=== PATIENT | female | born 1980 | race Caucasian/White ===

== ENCOUNTER 2018-04-07 21:38 | Emergency (ER) | payer OTHER, SELFPAY ==
[2018-04-07 21:46] VITALS: RESP 16
[2018-04-08] MEDS ORDERED: Iohexol 240 (50 ml) PO ONE (00:06)
[2018-04-08] MEDS ORDERED: Iohexol 240 (50 ml) ONE (00:35)
[2018-04-08 00:49] LABS: BASO % 0.5 % (0.0-2.0); EOS # 0.1 K/uL (0.0-0.7); EOS % 1.4 % (0.0-4.0); HEMOGLOBIN 9.4 g/dL (12.0-16.0); LYMPH # 2.4 K/uL (1.0-4.3); MEAN CELL VOLUME 67.4 fl (81.0-99.0); MEAN CORPUSCULAR HEMOGLOBIN 21.2 pg (27.0-31.0); MEAN CORPUSCULAR HGB CONC 31.4 g/dL (33.0-37.0); MEAN PLATELET VOLUME 8.3 fl (7.2-11.7); MONO # 0.6 K/uL (0.0-0.8); MONO % 7.8 % (0.0-10.0); NEUT # 4.5 K/uL (1.8-7.0); NEUT % 58.3 % (50.0-75.0); RBC 4.42 Mil/uL (3.80-5.20); RED CELL DISTRIBUTION WIDTH 18.4 % (11.5-14.5); WHITE BLOOD COUNT 7.7 K/uL (4.8-10.8)
[2018-04-08 00:58] LABS: ALB/GLOB RATIO 1.2 (1.0-2.1); ALBUMIN 4.2 g/dL (3.5-5.0); ALT/SGPT 28 U/L (9-52); AST/SGOT 20 U/L (14-36); BLOOD UREA NITROGEN 12 mg/dl (7-17); CALCIUM 9.1 mg/dL (8.4-10.2); GFR AFRICAN-AMERICAN > 60; GFR NON-AFRICAN AMERICAN > 60; LIPASE 116 U/L (23-300)
--- NOTE | 2018-04-08 01:57 | ED PDOC ---
HPI: Abdomen Time Seen by Provider: 04/07/18 23:15 Chief Complaint (Nursing): Abdominal Pain Chief Complaint (Provider): abdominal pain History Per: Patient History/Exam Limitations: no limitations Onset/Duration Of Symptoms: Days (x3), Intermittent Episodes (ongoing 6 months) Current Symptoms Are (Timing): Still Present Location Of Pain/Discomfort: Suprapubic Associated Symptoms: Nausea, Urinary Symptoms (dysuria) Additional Complaint(s): Trista Miranda is a 38 year old female, with no significant past medical history, who presents to the emergency department with suprapubic abdominal pain onset 3 days ago. Patient states that she has been experiencing the pain off and on for the past 6 months but has not seen a doctor for it. Patient reports a recent 12 lbs weight loss in the past few months which she attributes to getting a new job that requires her to be more physically active. She denies and diarrhea, fever or vaginal bleeding. PMD: none provided Past Medical History Reviewed: Historical Data, Nursing Documentation, Vital Signs Vital Signs: Last Vital Signs Temp 98.6 F 04/07/18 21:45 Pulse 69 04/07/18 21:45 Resp 16 04/07/18 21:45 BP 149/89 04/07/18 21:45 Pulse Ox 98 04/08/18 05:49 - Medical History PMH: No Chronic Diseases - Surgical History Surgical History: No Surg Hx - Family History Family History: States: Hypertension - Home Medications Home Medications: Ambulatory Orders Medication Instructions Recorded Docusate Sodium [Colace] 100 mg PO BID PRN #30 capsule 04/08/18 - Allergies Allergies/Adverse Reactions: Allergies Allergy/AdvReac Type Severity Reaction Status Date / Time No Known Allergies Allergy Verified 04/07/18 21:43 Review of Systems ROS Statement: Except As Marked, All Systems Reviewed And Found Negative Constitutional: Negative for: Fever Gastrointestinal: Positive for: Nausea, Abdominal Pain (suprapubic ). Negative for: Diarrhea Genitourinary Female: Positive for: Dysuria. Negative for: Vaginal Bleeding Physical Exam - Reviewed Nursing Documentation Reviewed: Yes Vital Signs Reviewed: Yes - Physical Exam Comments: GENERAL APPEARANCE: Patient is awake, alert, oriented x 3, in no distress. SKIN: Warm, dry; (-) cyanosis. EYES: (-) conjunctival pallor, (-) scleral icterus. ENMT: Mucous membranes moist. NECK: (-) tenderness, (-) stiffness, (-) lymphadenopathy. CHEST AND RESPIRATORY: (-) rales, (-) rhonchi, (-) wheezes; breath sounds equal bilaterally. HEART AND CARDIOVASCULAR: (-) irregularity; (-) murmur, (-) gallop. ABDOMEN AND GI: (-) distention. Bowel sounds active; [ +] tenderness in [ suprapubic]. (-) guarding, (-) rebound, (-) palpable masses, (-) CVA tenderness. EXTREMITIES: (-) deformity, (-) edema, (+) distal pulses. NEURO AND PSYCH: Mental status as above; (-) focal findings. - Laboratory Results Result Diagrams: 04/08/18 00:47 04/08/18 00:47 - ECG O2 Sat by Pulse Oximetry: 98 (RA) Pulse Ox Interpretation: Normal Medical Decision Making Medical Decision Making: Time: 02:02 Initial Impression: 38 year old female with suprapubic pain Initial Plan: --CT abd/pelvis w/ IV contrast --CMP --Lipase stat --Urine dipstick --CBC w/ differential --Omnipaque 50 ml PO --Urine culture --IV insertion saline --Urine test Uhcg : (-) Udip : (-) ketones / blood / nitrate / leuks Labs reviewed : Hgb 9.4 / Hct 29 CT A/P w/ PO & IV contrast: FINDINGS: Lower thorax: Atelectasis in the bases. ABDOMEN: Liver: Normal. No mass. Gallbladder and bile ducts: Normal. No calcified stones. No ductal dilation. Pancreas: Normal. No ductal dilation. Spleen: Normal. No splenomegaly. Adrenals: Normal. No mass. Kidneys and ureters: Cortical volume loss right kidney possible pyelonephritis. Possible right renal cyst. No hydronephrosis8 Stomach and bowel: Moderate fecal retention. Appendix: No evidence of appendicitis. PELVIS: Bladder: Unremarkable as visualized. Reproductive: Multiple enhancing lesions and enlarge the uterus which are probably fibroids. ABDOMEN and PELVIS: Intraperitoneal space: Normal. No free air. No significant fluid collection. Bones/joints: No acute fracture. No dislocation. Soft tissues: Probable left gluteal injection site. Vasculature: Normal. No abdominal aortic aneurysm. Lymph nodes: Normal. No enlarged lymph nodes. IMPRESSION: 1. Moderate fecal retention. 2. Multiple enhancing lesions and enlarge the uterus which are probably fibroids. 3. Cortical volume loss right kidney possible pyelonephritis. Dictated and Authenticated by: Boaz Norman MD 04/08/2018 5:51 AM Eastern Time ([place] & [place]) On re-evaluation, patient remains AAOx3, in no acute distress. Patient has no complaints at this time. Lab results d/w the patient, she denies any h/o anemia. Diagnostic results d/w the patient in great detail. Diagnosis of abdominal pain , due to constipation, and anemia d/w the patient. Patient advised that she has fibroids and she should follow this up with a ski lift mechanic. Based on history, exam and diagnostic results, plan will be for outpatient follow up. Patient instructed to follow-up with referral provided in 1-2 days without fail. Advised to take medication as prescribed. Return to the emergency room at any time for any new or worsening symptoms. Patient states she fully agrees with and understands discharge instructions. States that she agrees with the plan and disposition. Verbalized and repeated discharge instructions and plan. I have given the patient opportunity to ask any additional questions. Scribe Attestation: Documented by Herminia Tobar, acting as a scribe for Mariana Cross PA-C. Provider Scribe Attestation: All medical record entries made by the Scribe were at my direction and personally dictated by me. I have reviewed the chart and agree that the record accurately reflects my personal performance of the history, physical exam, medical decision making, and the department course for this patient. I have also personally directed, reviewed, and agree with the discharge instructions and disposition. Disposition - Clinical Impression Clinical Impression: Abdominal pain, Constipation, Anemia - Patient ED Disposition Is Patient to be Admitted: No Counseled Patient/Family Regarding: Studies Performed, Diagnosis, Need For Followup, Rx Given - Disposition Referrals: [facility] [Outside] [facility] [Outside] Disposition: Routine/Home Disposition Time: 06:00 Condition: STABLE Additional Instructions: Thank you for letting us take care of you today. You were treated for abdominal pain, constipation, anemia. The emergency medical care you received today was directed towards the acute presenting symptoms. If you were prescribed any medication, please fill it and give as directed. It may take several days for your symptoms to resolve. Return to the Emergency Department at any time if symptoms worsen, do not improve, or if any other problems arise. Please call one of the physicians/clinics you have been referred to that are listed on the Patient Visit Information form that is included in your discharge packet. Bring any paperwork you were given at discharge with you along with any medications to your follow up visit. Our treatment cannot replace ongoing medical care by a primary care provider (PCP) outside of the emergency department. Thank you for allowing the [facility] team to be part of your care today. Prescriptions: Docusate Sodium [Colace] 100 mg PO BID PRN #30 capsule PRN Reason: Constipation Instructions: Acute Abdomen (Belly Pain), Adult (DC), Constipation in Adults, Anemia Caused by Low Iron, Adult (DC) Forms: [employer] (Jamaican), [facility] ED School/Work Excuse Print Language: BURMESE
[2018-04-08] MEDS ORDERED: Sodium Chloride 0.9% 50 ML IV ONE (03:31)
[2018-04-08] MEDS ORDERED: Iohexol 300 100 ML IJ ONE (03:31)
[2018-04-08 06:20] VITALS: BP 129/74; PULSE 65; TEMP 98.9; O2SAT 99
--- NOTE | 2018-04-08 10:18 | CT ---
Date of service: 04/08/2018 PROCEDURE: CT Abdomen and Pelvis with contrast HISTORY: lower abd COMPARISON: CT scan of the abdomen pelvis dated 02/12/2014. TECHNIQUE: Contrast dose: 95 mL Omnipaque 300 Radiation dose: Total exam DLP = 769.1 mGy-cm. This CT exam was performed using one or more of the following dose reduction techniques: Automated exposure control, adjustment of the mA and/or kV according to patient size, and/or use of iterative reconstruction technique. FINDINGS: LOWER THORAX: Unremarkable. LIVER: Unremarkable. No gross lesion or ductal dilatation. GALLBLADDER AND BILE DUCTS: Unremarkable. PANCREAS: Unremarkable. No gross lesion or ductal dilatation. SPLEEN: Unremarkable. ADRENALS: Unremarkable. No mass. KIDNEYS AND URETERS: Inhomogeneous right renal enhancement with lobulated contour and smaller size in comparison to the left kidney. Nonobstructive punctate lower pole right calculi. Mild distention of both ureters and renal collecting systems. No solid mass. VASCULATURE: Unremarkable. No aortic aneurysm. BOWEL: Unremarkable. No obstruction. No gross mural thickening. APPENDIX: Normal appendix. PERITONEUM: Unremarkable. No free fluid. No free air. LYMPH NODES: Unremarkable. No enlarged lymph nodes. BLADDER: Unremarkable. REPRODUCTIVE: Submucosal fibroid measuring 4.1 x 3.3 cm. Sub serosal fibroid on the right measuring 6.7 x 6.7 cm. BONES: No acute fracture. OTHER FINDINGS: None. IMPRESSION: Inhomogeneous right renal and psoas lobulated contour may reflect underlying pyelonephritis. Nonobstructive punctate right lower pole calculi. Mild distention of both ureters and renal collecting systems may be related to mass effect from multi fibroid uterus.
== END 2018-04-08 06:22 | disposition home or self-care (01) ==
LOC: H.ER 21:38
DX: R10.9 Unspecified abdominal pain (principal); K59.00 Constipation, unspecified; D64.9 Anemia, unspecified
CPT/HCPCS: 74177; 80053; 81025; 83690; 85025; 87086; 87181; 99283; Q9966; Q9967

== ENCOUNTER 2018-11-13 21:14 | Emergency (ER) | payer SELFPAY ==
[2018-11-13 23:09] VITALS: PULSE 67; O2SAT 99
[2018-11-14 01:06] LABS: SQUAMOUS EPITHIAL 5 /hpf (0-5); URINE AMORPHOUS SEDIMENT FEW /ul (<OCC); URINE BACTERIA MOD (<OCC); URINE BILIRUBIN NEGATIVE (NEGATIVE); URINE BLOOD NEGATIVE (NEGATIVE); URINE CLARITY TURBID (Clear); URINE COLOR YELLOW (YELLOW); URINE GLUCOSE (UA) NEG (NEGATIVE); URINE LEUKOCYTE ESTERASE NEG Leu/uL (Negative); URINE PROTEIN 30 mg/dL (NEGATIVE); URINE UROBILINOGEN 0.2-1.0 mg/dL (0.2-1.0)
--- NOTE | 2018-11-14 01:12 | ED PDOC ---
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 Patient reports she has 2 fibroids 1 is 5 cm and the other is the "size of an egg." Patient has been having constant left lower quadrant pain that has been worsening. Patient reports she recently has had biopsies done by her Gyno that showed they were non-cancerous. Patient states that if pain were to ever get severe she should come to the ER for "surgery." Denies any vaginal bleeding or discharge as well as fever, nausea, vomiting. Past Medical History Reviewed: Historical Data, Nursing Documentation, Vital Signs Vital Signs: Last Vital Signs Temp 98.1 F 11/13/18 23:08 Pulse 67 11/13/18 23:08 Resp 18 11/13/18 23:08 BP 136/99 H 11/13/18 23:08 Pulse Ox 99 11/13/18 23:08 - Medical History Other PMH: Fibroids - Family History Family History: States: Hypertension - Home Medications Home Medications: Ambulatory Orders Medication Instructions Recorded Docusate Sodium [Colace] 100 mg PO BID PRN #30 capsule 04/08/18 Sulfamethoxazole/Trimethoprim 1 tab PO BID 5 Days tab 04/12/18 [Bactrim DS 800 mg-160 mg] Ketorolac Tromethamine [Toradol] 10 mg PO BID PRN #30 tab 11/14/18 - Allergies Allergies/Adverse Reactions: Allergies Allergy/AdvReac Type Severity Reaction Status Date / Time No Known Allergies Allergy Verified 04/07/18 21:43 Review of Systems ROS Statement: Except As Marked, All Systems Reviewed And Found Negative Constitutional: Negative for: Fever Gastrointestinal: Positive for: Abdominal Pain. Negative for: Nausea, Vomiting Genitourinary Female: Negative for: Vaginal Discharge, Vaginal Bleeding Physical Exam - Reviewed Nursing Documentation Reviewed: Yes Vital Signs Reviewed: Yes - Physical Exam Appears: Positive for: Well, Non-toxic, No Acute Distress. Negative for: Uncomfortable (Comfortable) Head Exam: Positive for: ATRAUMATIC, NORMAL INSPECTION, NORMOCEPHALIC Skin: Positive for: Normal Color, Warm, DRY Eye Exam: Positive for: EOMI, Normal appearance, PERRL ENT: Positive for: Normal ENT Inspection Neck: Positive for: Normal, Painless ROM Cardiovascular/Chest: Positive for: Regular Rate, Rhythm. Negative for: Murmur Respiratory: Positive for: Normal Breath Sounds. Negative for: Respiratory Distress Gastrointestinal/Abdominal: Positive for: Tenderness (LLQ) Back: Positive for: Normal Inspection Extremity: Positive for: Normal ROM. Negative for: Pedal Edema, Deformity Neurological/Psych: Positive for: Awake, Alert, Normal Tone. Negative for: M otor/Sensory Deficits - Laboratory Results Lab Results: Urine Color Yellow (YELLOW) 11/14/18 00:44 Urine Clarity Turbid (Clear) 11/14/18 00:44 Urine pH 8.0 (5.0-8.0) 11/14/18 00:44 Ur Specific [place] 1.017 (1.003-1.030) 11/14/18 00:44 Urine Protein 30 mg/dL (NEGATIVE) 11/14/18 00:44 Urine Glucose (UA) Neg mg/dL (NEGATIVE) 11/14/18 00:44 Urine Ketones Negative mg/dL (NEGATIVE) 11/14/18 00:44 Urine Blood Negative (NEGATIVE) 11/14/18 00:44 Urine Nitrate Positive (NEGATIVE) H 11/14/18 00:44 Urine Bilirubin Negative (NEGATIVE) 11/14/18 00:44 Urine Urobilinogen 0.2-1.0 mg/dL (0.2-1.0) 11/14/18 00:44 Ur Leukocyte Esterase Neg Gisselle/uL (Negative) 11/14/18 00:44 Urine Microscopic WBC < 1 /hpf (0-5) 11/14/18 00:44 Ur Squamous Epith Cells 5 /hpf (0-5) 11/14/18 00:44 Amorphous Sediment Few /ul (<OCC) H 11/14/18 00:44 Urine Bacteria Mod (<OCC) H 11/14/18 00:44 - ECG O2 Sat by Pulse Oximetry: 99 (RA) Pulse Ox Interpretation: Normal Medical Decision Making Medical Decision Making: Time: 00:42 A/P: 38 y/o with pain from fibroids. Patient is very well appearing. Will get US to evaluate for worsening fibroids size or number. * Toradol 60 mg * Urine * US Transvag 03:53 US Pelvis Transvag Findings: The uterus measures 12.5x8.5x11.1 cm. Endometrium is normal in thickness measuring 11 mm. Uterine fundal fibroids are noted measuring 4.4-5.3 cm. Normal ovaries. Impression: Uterine fibroids. Patient is feeling better, comfortable in appearance. Fibroids do not seem to have grown/degenerated. 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 Patient understood this, will refer to clinic. Scribe Attestation: Documented by Luis A Butler, acting as a scribe Nancy Parrish MD. Provider Scribe Attestation: All medical record entries made by the Scribe were at my direction and personally dictated by me. I have reviewed the chart and agree that the record accurately reflects my personal performance of the history, physical exam, medical decision making, and the department course for this patient. I have also personally directed, reviewed, and agree with the discharge instructions and disposition. Disposition - Clinical Impression Clinical Impression: Fibroids - Disposition [facility] [Outside] Disposition: Routine/Home Disposition Time: 04:00 Condition: IMPROVED Prescriptions: Ketorolac Tromethamine [Toradol] 10 mg PO BID PRN #30 tab PRN Reason: Pain, Moderate (4-7) Instructions: Uterine Fibroids Forms: [employer] (Maltese) Print Language: ENGLISH
[2018-11-14 04:37] VITALS: BP 135/75; RESP 17; TEMP 98.4
--- NOTE | 2018-11-14 10:39 | US ---
Date of service: 11/14/2018 HISTORY: fibroids, L sided lower abd pain COMPARISON: None available. TECHNIQUE: Transvaginal pelvic ultrasound FINDINGS: Examination limited by bowel gas. UTERUS: Measures 12.5 x 8.5 x 11.1 cm. Anteverted. Two large probable fibroids noted at the fundus measuring approximately 4.4 x 3.7 x 4.4 cm in 5.7 x 4.8 x 7.0 cm. ENDOMETRIUM: Measures 1.1 cm in diameter. CERVIX: No cervical abnormality identified. RIGHT OVARY: Measures 3.9 x 2.9 x 2.1 cm. Blood flow is demonstrated. LEFT OVARY: Measures 3.5 x 2.3 x 2.3 cm. Blood flow is demonstrated. FREE FLUID: No significant free fluid noted. OTHER FINDINGS: None. IMPRESSION: Enlarged fibroid uterus. Preliminary impression was provided by NYLA Thomas
== END 2018-11-14 04:35 | disposition home or self-care (01) ==
LOC: H.ER 21:14
DX: D25.9 Leiomyoma of uterus, unspecified (principal)
CPT/HCPCS: 76830; 81003; 81025; 96372; 99284; J1885